=== PATIENT | female | born 1950 | race Caucasian/White ===

== ENCOUNTER 2016-10-24 05:41 | Day surgery (SDC) | payer MEDICARE, OTHER ==
[~2016-10-24] VITALS: Ht 158.8 cm; Wt 58.9 kg
[~2016-10-24 05:41] MED LIST: ALBU8.5H2 INHALATION; CALC-460 PO; INDO25CA PO; MULT-1018 PO; SUMA50TA2 PO
[2016-10-24] MEDS ORDERED: fentaNYL-PF 50 mCg/mL 2 mL Inj ONE (05:42)
[2016-10-24] MEDS ORDERED: Propofol 10,000 mCg/mL 20 mL Inj ONE (05:42)
[2016-10-24] MEDS: Lactated Ringer's 1,000 ML IV SCH ×2 (05:51→07:29)
[2016-10-24 05:59] VITALS: BP 128/63; PULSE 59; RESP 16; O2SAT 98
[2016-10-24] MEDS ORDERED: Vancomycin Inj 1,000 MG in IV Premix 1 EACH IV ONE (06:00)
[2016-10-24] MEDS ORDERED: Lactated Ringer's 1,000 ML IV SCH (07:21)
[2016-10-24] MEDS ORDERED: Lactated Ringer's 500 ML IV PRN (07:21)
--- NOTE | 2016-10-24 07:23 | PCM.HPANE ---
Patient Data Date of Service: Oct 24, 2016 (0722) Surgeon Admitting Provider: Attending Provider:Chichi Guaman DPM Primary Care Physician:Kristina Bales PA-C Other Provider:Ema Navarro Anesthesia Reason for Visit Left Foot Hallux Valgus, Hammertoe Ht/WT & BMI Height (Feet): 5 Height (Inches): 2.5 Weight (Kilograms): 58.9 Body Mass Index 23.00 Allergies Coded Allergies: amoxicillin (Verified Allergy, Mild, RASH, 10/20/16) ampicillin (Verified Allergy, Mild, RASH, 10/20/16) metoclopramide (Verified Allergy, Mild, 10/20/16) minocycline (Verified Allergy, Mild, RASH, 10/20/16) penicillin V (Unverified Allergy, Unknown, "breathing problems", 10/20/16) sulfamethoxazole (Verified Allergy, Unknown, rash, 10/20/16) tramadol (Verified Allergy, Unknown, rash, 10/20/16) trimethoprim (Verified Allergy, Unknown, rash, 10/20/16) tetrahydrozoline (Verified Adverse Reaction, Mild, gi upset, 10/20/16) Past Anesthesia History Anesthesia History: Denies:: Anesthesia Reactions, Difficult Intubation, Fam Anesthesia Reaction, Fam Malignant Hypertherm, Malignant Hyperthermia Diabetes History Hx Diabetes?: No MRSA MRSA: No Medications Home Meds Incl Beta Miladys: No Reported Medications Indomethacin 25 Mg Capsule1-4 Tablet PO PRN Ref 0 10/20/16 Sumatriptan Succinate 50 Mg [id number] Mg PO A PRN For Pain 04/10/16 Albuterol HFA (Proair HFA)8.5 Gm Hfa.aer.ad2 Puffs INHALATION Q4H PRN For Wheezing #1 INHALER 04/10/16 Multivitamin (Multi Vitamin Daily)1 Each Tablet1 Each PO DAILY 30 Days Ref 0 04/10/16 Calcium Citrate/Vitamin D3 (Calcium Citrate with D Tablet)1 Each Tablet2 Each PO DAILY 04/10/16 Discontinued Reported Medications Baclofen 10 Mg [id number] Mg PO HS Ref 0 10MG AT BEDTIME 04/10/16 Baclofen 10 Mg Tablet5 Mg PO DAILYWL Ref 0 5MG AT NOON 04/10/16 Baclofen 10 Mg Tablet5 Mg PO DAILYWM Ref 0 5MG IN MORNING 04/10/16 History History of ENT Problems?: No HEENT History: Denies:: Cataracts Difficult Intubation Dysphagia Hearing Problem Sinus Problem TMJ Denture Type: None Teeth Condition: Within Normal Limits Hx of Heart Problems?: No Cardiovascular History: Denies:: AICD Abdominal Aortic Aneurism Atrial Fibrillation Cardiac Surgery Chest Pain Congestive Heart Failure Edema Heart Murmur Hypertension Irregular Heartbeat Pacemaker Rheumatic Fever Thrombophlebitis Valvular Heart Disease Hx of Respiratory Problem?: Yes Respiratory History: Positive for:: Asthma Denies:: COPD Chest Surgery Cough Dyspnea Emphysema Hemoptysis Oxygen Administration Pneumonia Pulmonary Embolism Tuberculosis Use of C-PAP Machine Hx Neurologic Problems?: Yes Neurological History: Positive for:: Headaches (10 MIGRAINES/YEAR) Denies:: Alzheimer's Disease CVA Dementia Dizziness Multiple Sclerosis Parkinson's Disease Seizures Hx of GI Problems?: No Hx of Problems?: No Genitourinary History: Positive for:: Kidney Stones (LITHOTRIPSY 2012) Denies:: HX of Hemodialysis Urinary Tract Infection HX of Peritoneal Dialysis: No Female Hx: Denies:: Currently Endometriosis Pelvic Inflammatory Problems with Breasts? Skin History: Denies:: History Skin Disorders? Pressure Ulcers Hx Musculoskeletal Problems?: No Musculoskeletal History: Positive for:: Back Injury (2005 BACK STRAIN) Denies:: Degenerative Joint Joint Replacement Musculoskeletal Trauma Systemic Lupus Hx of Psycho/Social Problems?: No Psycho Social History: Denies:: Anxiety Bipolar Disorder Hx Depression Suicide Attempt Hx Surgeries?: Yes (R FOOT BONE SPUR, R WRIST FX, FACIAL BONY CYST, DEVIATED SEPTUM,) Hx Any Other Health Problems?: Yes Other History: Positive for:: Hospitalization ([facility], [facility], [facility] 1990, CYST, L SHOULDER, JUANCARLOS BREASTS BX,) Denies:: Cancer Endocrine Disease Thyroid Disease History Blood Transfusions: Denies:: Blood Transfusions Hx Diabetes: No Hx Alcohol Use: YesHx Substance Use: No Smoking Status: Never Smoker Stop/Bang S-Snoring: Do You Snore Loudly: No T-Tired: feel tired, fatigued: No O-Obsered: Observed not breath: No P-Blood Pressure: treated: No B- Body Mass Index > 35 kg/m2: No A- Age over 50: Yes N- Neck Large Circumference: No G- Gender Male: No LOCO Total Score: 1 LOCO Risk Assessment: Low Risk, <3 Yes Risk Assessment Category Category 1A: Patient has history of documented sleep apnea, and HAS NOT received any narcotic, sedative or anesthesia administration during this stay. Category 1B: Patient has history of documented sleep apnea, and HAS received any narcotic , sedative or anesthesia administration during this stay Category 2: Patient has SUSPECTED Obstructive Sleep Apnea, and HAS received any narcotic , sedative or anesthesia administration during this stay. Category 3: Patient has SUSPECTED Obstructive Sleep Apnea and HAS NOT received narcotic, sedative or anesthesia administration during this stay. Category 4: Outpatient in Procedural Areas with known sleep apnea or who screen positive for High Risk via the STOP/BANG questionnaire. Exam Exam Vital Signs Vital Signs Date Time Temp Pulse Resp B/P Pulse Ox O2 Delivery O2 Flow Rate FiO2 10/24/16 05:59 36.3 59 16 128/63 98 Room Air General Appearance: Alert, Oriented X3 HEENT/AIRWAY: MP 1 Lungs: Clear to Auscultation Heart: Exam Unremarkable Meds/Labs/Diagnostics Admission Meds Current Medications Lactated Ringer's 1,000 ml @ 120 mls/hr Q8H20M IV Last administered on 05:51; Start 10/24/16 at 05:00; Stop 10/24/16 at 13:19 Vancomycin/0.9 % Sod Chloride/ Premix (Vancomycin Inj/ IV Premix) 200 ml @ 135 mls/hr PREOP ONCE IV Last administered on 10/24/16 06:19; Start 10/24/16 at 06: 00; Stop 10/24/16 at 07:28 Plan Impression Patient chart reviewed, patient interviewed and anesthestic plan with risks, benefits, and alternatives discussed, and informed consent obtained. NPO per Anesth. Guidelines: Yes ASA Physical Status: ASA2 Mod Systemic Disease Anesthetic Plan: GA Bene/Risks/Altern/Consents: Yes HP Complete Prior to Induction: Yes Cruz Vaz MD Oct 24, 2016 07:23
[2016-10-24] MEDS ORDERED: EPHEDrine Sulfate 50 mg/mL Inj IVPUSH PRN (07:25)
[2016-10-24] MEDS ORDERED: Phenylephrine 10,000 mCg/mL Inj IVPUSH PRN (07:25)
[2016-10-24] MEDS ORDERED: Dexamethasone 4 mg/mL Inj IVPUSH PRN (07:25)
[2016-10-24] MEDS ORDERED: Ondansetron 2 mg/mL 2 mL Inj IVPUSH PRN (07:25)
[2016-10-24] MEDS ORDERED: fentaNYL-PF 50 mCg/mL 2 mL Inj IVPUSH PRN (07:25)
[2016-10-24] MEDS ORDERED: Lidocaine 2%-Epi 1:100,000 20 mL Inj INFILTRATE ONE (07:45)
[2016-10-24 08:35] VITALS: BP 111/50; PULSE 62; RESP 16; O2SAT 99
--- NOTE | 2016-10-24 08:36 | PCM.ANEP1 ---
Post Anesthesia PACU Phase 1 Assessment Vital Signs 36.2, 62, 99%111/50, 16 Vital Signs Date Time Temp Pulse Resp B/P Pulse Ox O2 Delivery O2 Flow Rate FiO2 10/24/16 05:59 36.3 59 16 128/63 98 Room Air Anesthetic Administered: MAC Level of Alertness: Awake, talking LEON's with Equal Strength: Yes Pain: No Nausea or Vomiting: No CV Function & Hydration Stable: Yes Airway Device: none Oxygen Delivery: Room Air Lungs: Clear to Auscultation Dermatome Level: Full Sensation Summary easy sedation PACU Phase 2 Assessment Complications: No Follow up Care: No Patient Instructions Provided: N/A Cruz Vaz MD Oct 24, 2016 08:36
[2016-10-24 08:45] VITALS: BP 108/64; PULSE 62; RESP 16; O2SAT 98
[2016-10-24] MEDS ORDERED: oxyCODONE-Acetamin 5-325 mg Tablet PO PRN (08:45)
--- NOTE | 2016-10-24 08:56 | PCM.PODPO ---
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 Left 4th toe percutaneous flexor tenotomy. Surgeon Surgeon: Chichi Guaman DPM Assistants: None Indication for Procedure Pain with activity and shoegear. Findings <10% cartilage loss in 1st MTP joint, excess joint fluid. Well corrected deformity after osteotomy and well corrected 4th digit. Details of Procedure Patient was identified in the preop holding area and brought back to the operating room. She was placed on the operating table in supine position. The timeout protocol was completed and the patient's name and site of surgery confirmed. IV sedation was initiated and the left foot Rivero block administered. The left foot was prepped and draped in usual aseptic manner. A dorsomedial incision was made over the first metatarsophalangeal joint. The incision was deepened bluntly. The skin was undermined over the extensor hallucis longus tendon and into the first intermetatarsal space where an adductor tendon release was performed. The medial portion of the capsule was then incised linearly and reflected off of the bunion eminence. The bunion was resected with a saw. A 0.045" K wire was inserted into the center of the metatarsal head as an osteotomy guide. A chevron-shaped osteotomy was cut into the metatarsal head and neck, the capital fragment moved laterally and fixated with a partially threaded cannulated titanium screw. The medial overhang of bone was resected. The wound was irrigated with normal saline. The remaining joint cartilage appeared healthy and the correction was satisfactory. The medial tibial suspensory ligaments was repaired with 3-0 Vicryl, the capsule was closed with 3-0 Vicryl. The skin was closed with 4-0 Prolene. Using #67 [place] blade, I percutaneously released the flexor contracture of the fourth toe by testing resistance gradually, making sure not to perform an excessive release. The dressing consisted of silk, normal saline moistened 4 x 4 gauze, Kerlix, and Coban. The patient was weaned off of IV sedation and taken to the PACU with vital signs stable and the vascular status to the left foot intact. Grafts, Implants: Implants-See Implant Record Complications There were no periprocedural complications identified. Condition Stable Anesthetic Administered: MAC Drains: None Catheters: None Output, Estimated Blood Loss: 5 (ml) Blood Admin during surgery: No Surgical Cast or Splint: Post-op Boot Surgical Specimen Removed: No Specimen sent to Pathology: No Post Operative Plan Weight-bear as tolerated in a postoperative shoe. The dressing is to stay clean , dry, intact until follow-up visit next week. By mouth pain medication was prescribed at the preoperative examination. A postoperative shoe was dispensed at the preoperative examination. Chichi Guaman DPM Oct 24, 2016 08:56
== END 2016-10-24 23:59 | disposition home or self-care (01) ==
LOC: SAS 05:41
PROVIDERS: ATTEND Podiatrist
DX: M20.12 Hallux valgus (acquired), left foot (principal); M24.575 Contracture, left foot; M20.42 Other hammer toe(s) (acquired), left foot; M79.672 Pain in left foot; E78.00 Pure hypercholesterolemia, unspecified; E78.5 Hyperlipidemia, unspecified; J45.909 Unspecified asthma, uncomplicated; Q44.6 Cystic disease of liver; K21.9 Gastro-esophageal reflux disease without esophagitis; M54.5 Low back pain; Z79.890 Hormone replacement therapy; Z79.891 Long term (current) use of opiate analgesic; Z87.442 Personal history of urinary calculi; Z90.710 Acquired absence of both cervix and uterus
CPT/HCPCS: 28010; 28296; C1713; J3370; J7120